=== PATIENT | male | born 1990 | race African-American/Black ===

== ENCOUNTER 2017-04-03 13:33 | Emergency (ER) | payer SELFPAY ==
[~2017-04-03] VITALS: Ht 188 cm; Wt 88.6 kg
[2017-04-03 14:08] VITALS: BP 141/92
== END 2017-04-03 14:49 | disposition home or self-care (01) ==
LOC: EMS 13:36
DX: S13.4XXA Sprain of ligaments of cervical spine, initial encounter (principal); V43.52XA Car driver injured in collision with other type car in traffic accident, initial encounter; Y93.89 Activity, other specified; Y92.488 Other paved roadways as the place of occurrence of the external cause; Y99.8 Other external cause status
CPT/HCPCS: 99283